=== PATIENT | male | born 1950 | race Caucasian/White ===

== ENCOUNTER 2017-04-07 03:11 | Observation (INO) | payer OTHER ==
[~2017-04-07] VITALS: Ht 193 cm; Wt 115.4 kg
[~2017-04-07 03:11] MED LIST: FENOFIBRATE145 M1 PO; ONE DAILY TABL1 EAC1 PO; VITAMIN D31000 UNIT PO; ZINC30 MG PO
[2017-04-07 04:02] LABS: HEMATOCRIT 41.2 % (38.0-50.0); MCH 32.9 PG (29.0-34.0); MCHC 33.3 G/DL (30.0-36.0); MCV 98.8 FL (86-99); MEAN PLAT.VOLUME 10.2 uM^3 (9.0-12.4); PLATELET COUNT 215 K/uL (156-360); RBC DIS.WIDTH-CV 13.4 % (11.8-14.6); RBC DIS.WIDTH-SD 49.4 % (39-53); RED BLOOD COUNT 4.17 M/uL (4.00-5.50); WHITE BLOOD COUNT 5.1 K/uL (4.1-10.2)
[2017-04-07 04:13] LABS: CHLORIDE 104 mEq/L (99-109); POTASSIUM 4.3 mEq/L (3.7-5.4); SODIUM 139 mEq/L (136-147)
[2017-04-07 04:15] LABS: GLUCOSE 94 mg/dL (70-99)
[2017-04-07 04:16] LABS: ANION GAP 10 MEQ/L (2-14)
[2017-04-07 04:18] LABS: GFR ESTIMATE (CALCULATED) 43 mL/min/
[2017-04-07 04:19] LABS: UREA NITROGEN (BUN) 28 mg/dL (9-23)
[2017-04-07 04:24] LABS: TROP-I INTERPRETATION NEGATIVE; TROPONIN-I < 0.01 ng/mL (0.0-0.30)
[2017-04-07 07:22] VITALS: BP 108/67
[2017-04-07 07:23] LABS: HEMATOCRIT 37.4 % (38.0-50.0); MCH 33.1 PG (29.0-34.0); MCHC 33.7 G/DL (30.0-36.0); MCV 98.2 FL (86-99); MEAN PLAT.VOLUME 10.1 uM^3 (9.0-12.4); PLATELET COUNT 207 K/uL (156-360); RBC DIS.WIDTH-CV 13.4 % (11.8-14.6); RBC DIS.WIDTH-SD 47.7 % (39-53); RED BLOOD COUNT 3.81 M/uL (4.00-5.50); WHITE BLOOD COUNT 4.4 K/uL (4.1-10.2)
[2017-04-07 07:55] LABS: ALKALINE PHOSPHATASE 48 IU/L (3-129); ANION GAP 8 MEQ/L (2-14); CHLORIDE 105 MEQ/L (99-109); GFR ESTIMATE (CALCULATED) 50 mL/min/; GLUCOSE 125 mg/dL (70-99); POTASSIUM 4.4 MEQ/L (3.7-5.4); SAMPLE HEMOLYSIS CHECK 0; SAMPLE ICTERIC CHECK 0; SAMPLE LIPEMIA CHECK 0; SODIUM 138 MEQ/L (136-147); TOTAL BILIRUBIN 0.5 MG/DL (0.0-1.0); UREA NITROGEN (BUN) 28 mg/dL (9-23)
[2017-04-07 08:10] LABS: POINT-OF-CARE METER ID UU13113831
[2017-04-07 11:09] VITALS: BP 121/56
[2017-04-07 11:28] LABS: D-DIMER ELISA 0.61 mg/L FEU (< 0.57)
[2017-04-07 11:34] LABS: TROP-I INTERPRETATION NEGATIVE; TROPONIN-I < 0.01 ng/mL (0.0-0.30)
[2017-04-07 12:16] LABS: POINT-OF-CARE METER ID UU14162513
[2017-04-07] MEDS ORDERED: AMLODIPINE BES2.5 MG PO (14:51)
[2017-04-07] MEDS ORDERED: NITROSTAT0.4 MG SL (14:51)
[2017-04-07] MEDS ORDERED: ASPIR-LOW81 MG PO (14:51)
[2017-04-07 15:18] VITALS: BP 109/66
[2017-04-07 17:13] LABS: TROP-I INTERPRETATION NEGATIVE; TROPONIN-I 0.01 ng/mL (0.0-0.30)
[2017-04-07 17:27] LABS: POINT-OF-CARE METER ID UU13113831
[2017-04-07 18:37] LABS: Estimated Average Glucose 157 mg/dL (70-123); HEMOGLOBIN A1c (GLYCOHEMOGLOB) 7.1 % HGB (Below 5.7)
== END 2017-04-07 18:03 | disposition home or self-care (01) ==
LOC: EME 03:11 → EDOF 05:08 → 5WEST 07:10
PROVIDERS: Emergency Medicine; Hospitalist; Internal Medicine; Nurse Practitioner Adult Health
DX: R07.9 Chest pain, unspecified (principal); R94.39 Abnormal result of other cardiovascular function study; I20.8 Other forms of angina pectoris; R06.02 Shortness of breath; E11.22 Type 2 diabetes mellitus with diabetic chronic kidney disease; N18.3 Chronic kidney disease, stage 3 (moderate); E78.5 Hyperlipidemia, unspecified; E66.9 Obesity, unspecified; Z68.31 Body mass index [BMI] 31.0-31.9, adult; F17.290 Nicotine dependence, other tobacco product, uncomplicated; Z85.46 Personal history of malignant neoplasm of prostate
CPT/HCPCS: 71020; 80048; 80053; 82948; 83036; 83880; 84484; 85027; 85379; 93005; 93970; 99281; 99283; G0378; J1644; J1815; J2270; J2405; J7030

== ENCOUNTER 2017-04-08 10:31 | Emergency (ER) | payer OTHER ==
[~2017-04-08] VITALS: Ht 193 cm; Wt 117.6 kg
[~2017-04-08 10:31] MED LIST changes: +AMLODIPINE BES2.5 MG PO; +ASPIR-LOW81 MG PO; +NITROSTAT0.4 MG SL
[2017-04-08 11:57] LABS: EOSINOPHIL (%) 1.4 % (0-5); EOSINOPHIL COUNT 0.1 K/uL (0-0.3); HEMATOCRIT 36.7 % (38.0-50.0); IMMATURE GRANULOCYTE (%) 0.4 % (0.0-0.7); MCH 32.9 PG (29.0-34.0); MCHC 33.8 G/DL (30.0-36.0); MCV 97.3 FL (86-99); MONOCYTE (%) 8.6 % (3-12); MONOCYTE COUNT 0.5 K/uL (0-0.8); NEUTROPHIL (%) 71.7 % (45-76); PLATELET COUNT 181 K/uL (156-360); RBC DIS.WIDTH-CV 13.1 % (11.8-14.6); RED BLOOD COUNT 3.77 M/uL (4.00-5.50); WHITE BLOOD COUNT 5.6 K/uL (4.1-10.2)
[2017-04-08 12:05] LABS: CHLORIDE 103 mEq/L (99-109); POTASSIUM 4.1 mEq/L (3.7-5.4); SODIUM 137 mEq/L (136-147)
[2017-04-08 12:06] LABS: MAGNESIUM 1.9 mg/dL (1.3-2.7)
[2017-04-08 12:07] LABS: GLUCOSE 148 mg/dL (70-99); INTER. NORMALIZED RATIO 1.1; PROTHROMBIN TIME 11.2 (9.2-11.2)
[2017-04-08 12:09] LABS: ANION GAP 9 MEQ/L (2-14)
[2017-04-08 12:11] LABS: GFR ESTIMATE (CALCULATED) 40 mL/min/
[2017-04-08 12:12] LABS: UREA NITROGEN (BUN) 25 mg/dL (9-23)
[2017-04-08 12:14] LABS: CREATINE KINASE 86 IU/L (1-294)
[2017-04-08 12:17] LABS: TROP-I INTERPRETATION NEGATIVE; TROPONIN-I < 0.01 ng/mL (0.0-0.30)
[2017-04-08 14:22] VITALS: BP 151/81
== END 2017-04-08 14:23 | disposition home or self-care (01) ==
LOC: EME 10:31
PROVIDERS: Emergency Medicine
DX: M79.1 Myalgia (principal); N28.9 Disorder of kidney and ureter, unspecified
CPT/HCPCS: 80048; 82550; 83735; 84484; 85025; 85610; 85730; 93005; 99281; 99284